=== PATIENT | male | born 2000 | race Hispanic/Latino ===

== ENCOUNTER 2022-02-23 00:36 | Emergency (ER) | payer MEDICAID ==
[~2022-02-23] VITALS: Ht 175.3 cm; Wt 103.0 kg
[2022-02-23] MEDS ORDERED: IBUP-1493 PO (01:35)
[2022-02-23 01:38] VITALS: BP 126/79
== END 2022-02-23 01:43 | disposition home or self-care (01) ==
LOC: EDH 00:36
DX: S60.041A Contusion of right ring finger without damage to nail, initial encounter (principal); Y93.67 Activity, basketball; Y92.89 Other specified places as the place of occurrence of the external cause; Y99.8 Other external cause status
CPT/HCPCS: 73140